=== PATIENT | male | born 1945 | race African-American/Black ===

== ENCOUNTER 2016-05-27 20:43 | Emergency (ER) | payer OTHER ==
[~2016-05-27] VITALS: Ht 182.9 cm; Wt 72.6 kg
[~2016-05-27 20:43] MED LIST: AMLODIPINE; NORCO 5-325 TA1 EACH PO; NORVASC10 MG PO; PRILOSEC20 MG PO
[2016-05-27 22:40] VITALS: BP 109/76
== END 2016-05-27 22:42 | disposition home or self-care (01) ==
LOC: ER 20:43
DX: S00.93XA Contusion of unspecified part of head, initial encounter (principal); S00.511A Abrasion of lip, initial encounter; F17.210 Nicotine dependence, cigarettes, uncomplicated; V89.2XXA Person injured in unspecified motor-vehicle accident, traffic, initial encounter; Y93.89 Activity, other specified; Y92.89 Other specified places as the place of occurrence of the external cause; Y99.8 Other external cause status